=== PATIENT | female | born 1980 | race Caucasian/White ===

== ENCOUNTER → 2020-12-17 | Outpatient (CLI) | payer BC ==
[~2020-12-17] MED LIST: IBU600 MG PO; METHERGINE0.2 MG/TAB PO; PERCOCET 325 MG1 TA2 PO; PRENATAL 1 VITA1 TAB PO; SENOKOT S 50 MG1 TAB PO
== END ==
LOC: MC.RAD 08:59
DX: Z12.31 Encounter for screening mammogram for malignant neoplasm of breast (principal); Z98.82 Breast implant status

== ENCOUNTER → 2022-01-27 | Outpatient (CLI) | payer OTHER | LOC: MC.RAD 11:22 | DX: Z12.31 Encounter for screening mammogram for malignant neoplasm of breast (principal); Z98.82 Breast implant status ==

== ENCOUNTER → 2024-05-16 | Outpatient (CLI) | payer OTHER | LOC: MC.RAD 06:01 | DX: Z12.31 Encounter for screening mammogram for malignant neoplasm of breast (principal) ==

== ENCOUNTER 2024-06-05 10:10 | Emergency (ER) | payer OTHER ==
[~2024-06-05] VITALS: Ht 172.7 cm; Wt 63.6 kg
[2024-06-05 10:19] VITALS: TEMP 98.3
[2024-06-05 12:25] VITALS: BP 130/90; PULSE 81
== END 2024-06-05 12:29 | disposition home or self-care (01) ==
LOC: COL.ER 10:10
DX: S01.112A Laceration without foreign body of left eyelid and periocular area, initial encounter (principal); W19.XXXA Unspecified fall, initial encounter; W22.09XA Striking against other stationary object, initial encounter

== ENCOUNTER → 2024-06-20 | Outpatient (CLI) | payer OTHER | LOC: COL.VAS 08:28 | DX: J90 Pleural effusion, not elsewhere classified (principal) ==